=== PATIENT | female | born 1985 | race Two or more races ===

== ENCOUNTER 2018-11-10 13:57 | Inpatient (IN) | payer MEDICAID ==
[~2018-11-10] VITALS: Ht 167.6 cm; Wt 53.3 kg
[2018-11-10 14:00] VITALS: BP 131/77
--- NOTE | 2018-11-10 14:01 | NUR ---
ED Nurse Note:pt. was BIBA with c/o right flank pain
[2018-11-10] MEDS ORDERED: Ketorolac 30mg Inj IV ONE (14:15)
[2018-11-10 14:34] LABS: HEMATOCRIT 34.4 % (37.0-47.0); HEMOGLOBIN 11.9 G/DL (12.0-16.0); MEAN CORPUSCULAR VOLUME 93 FL (80-99); PLATELET COUNT 133 K/UL (150-450); RED BLOOD COUNT 3.71 M/UL (4.20-5.40); RED CELL DISTRIBUTION WIDTH 11.3 % (11.6-14.8)
[2018-11-10 14:35] LABS: APPEARANCE,URINE CLEAR; BILIRUBIN, URINE NEGATIVE (NEGATIVE); COLOR,URINE PALE YELLOW; GLUCOSE, URINE (UA) NEGATIVE (NEGATIVE); KETONES,URINE NEGATIVE (NEGATIVE); LEUKOCYTE ESTERASE ,URINE 3+ (NEGATIVE); NITRITE,URINE NEGATIVE (NEGATIVE); PH,URINE 6 (4.5-8.0); PROTEIN,URINE 1+ (NEGATIVE); UROBILINOGEN,URINE NORMAL MG/DL (0.0-1.0)
[2018-11-10 14:47] LABS: ANION GAP 10 mmol/L (5-15); BLOOD UREA NITROGEN 10 mg/dL (7-18); CALCIUM 9.3 MG/DL (8.5-10.1); CARBON DIOXIDE 27 MMOL/L (21-32); CHLORIDE 101 MMOL/L (98-107); CREATININE 0.7 MG/DL (0.55-1.30); POTASSIUM 3.5 MMOL/L (3.5-5.1); SODIUM 138 MMOL/L (136-145)
[2018-11-10 14:51] LABS: ALANINE AMINOTRANSFERASE 13 U/L (12-78); ALBUMIN 3.6 G/DL (3.4-5.0); ALBUMIN/GLOBULIN RATIO 0.9 (1.0-2.7); ALKALINE PHOSPHATASE 49 U/L (46-116); ASPARTATE AMINO TRANSFERASE 14 U/L (15-37); BILIRUBIN,TOTAL 0.9 MG/DL (0.2-1.0)
--- NOTE | 2018-11-10 14:51 | Emergency Room Report ---
History of Present Illness General Chief Complaint: Pain Source: Patient Present Illness HPI Patient presents with complaints of right flank pain She reports that she was diagnosed with bladder infection 3 weeks ago was on antibiotics More recently now has been having pain to the right flank area denies any other radiation she has felt some chills earlier Denies any vomiting or diarrhea denies any chest pain or shortness of breath pain is a sharp pain denies any change of position or exertion Allergies: Coded Allergies: No Known Allergies (Unverified , 11/10/18) Patient History Past Medical History: see triage record Pertinent Family History: none Last Menstrual Period: 11/08/18 Now: No Reviewed Nursing Documentation: PMH: Agreed; PSxH: Agreed Nursing Documentation-PMH Past Medical History: No Stated History Review of Systems All Other Systems: negative except mentioned in HPI Physical Exam Vital Signs Date Time Temp Pulse Resp B/P (MAP) Pulse Ox O2 Delivery O2 Flow Rate FiO2 11/10/18 13:29 98.6 68 16 131/77 99 Room Air Sp02 EP Interpretation: reviewed, normal General Appearance: well appearing, no apparent distress Head: normocephalic, atraumatic Eyes: bilateral eye PERRL, bilateral eye EOMI ENT: hearing grossly normal, normal pharynx, TMs + canals normal, uvula midline Neck: full range of motion, supple, no meningismus, no bony tend Respiratory: lungs clear, normal breath sounds, no rhonchi, no respiratory distress, no retraction, no accessory muscle use Cardiovascular #1: normal peripheral pulses, regular rate, rhythm, no edema, no gallop, no JVD, no murmur Gastrointestinal: normal bowel sounds, non tender, soft, no mass, no organomegaly, non-distended, no guarding, no hernia, no pulsatile mass, no rebound Genitourinary: CVA tenderness (R) Musculoskeletal: normal inspection Neurologic: oriented x3, responsive, binder and wrapper packer III-XII nml as tested, motor strength/ tone normal, sensory intact Psychiatric: mood/affect normal Skin: normal color, no rash, warm/dry, palpation normal Lymphatic: normal inspection, no adenopathy Medical Decision Making Diagnostic Impression: Primary Impression: Pyelonephritis ER Course With the patient's history and examination, multiple differentials considered, including but not limited to , ectopic , ovarian torsion, gastritis, cholecystitis, pancreatitis, appendicitis Patient's white blood cell count was mildly elevated urine sample that show infectious pathology Given the patient's location of pain and presentation findings are consistent with pyelonephritis patient has had recent antibiotic coverage And given the failed outpatient therapy requires further inpatient care Labs Test 11/10/18 14:20 11/11/18 06:13 11/11/18 17:50 White Blood Count 13.0 K/UL (4.8-10.8) 10.4 K/UL (4.8-10.8) Red Blood Count 3.71 M/UL (4.20-5.40) 3.31 M/UL (4.20-5.40) Hemoglobin 11.9 G/DL (12.0-16.0) 10.6 G/DL (12.0-16.0) Hematocrit 34.4 % (37.0-47.0) 30.8 % (37.0-47.0) Mean Corpuscular Volume 93 FL (80-99) 93 FL (80-99) Mean Corpuscular Hemoglobin 32.1 PG (27.0-31.0) 32.2 PG (27.0-31.0) Mean Corpuscular Hemoglobin Concent 34.7 G/DL (32.0-36.0) 34.6 G/DL (32.0-36.0) Red Cell Distribution Width 11.3 % (11.6-14.8) 11.6 % (11.6-14.8) Platelet Count 133 K/UL (150-450) 113 K/UL (150-450) Mean Platelet Volume 7.2 FL (6.5-10.1) 7.7 FL (6.5-10.1) Neutrophils (%) (Auto) % (45.0-75.0) 79.8 % (45.0-75.0) Lymphocytes (%) (Auto) % (20.0-45.0) 11.1 % (20.0-45.0) Monocytes (%) (Auto) % (1.0-10.0) 8.3 % (1.0-10.0) Eosinophils (%) (Auto) % (0.0-3.0) 0.2 % (0.0-3.0) Basophils (%) (Auto) % (0.0-2.0) 0.6 % (0.0-2.0) Differential Total Cells Counted 100 100 Neutrophils % (Manual) 83 % (45-75) 76 % (45-75) Lymphocytes % (Manual) 10 % (20-45) 13 % (20-45) Monocytes % (Manual) 4 % (1-10) 9 % (1-10) Eosinophils % (Manual) 0 % (0-3) 0 % (0-3) Basophils % (Manual) 0 % (0-2) 0 % (0-2) Band Neutrophils 3 % (0-8) 2 % (0-8) Platelet Estimate Decreased Decreased Platelet Morphology Normal Normal Red Blood Cell Morphology Normal Urine Color Pale yellow Urine Appearance Clear Urine pH 6 (4.5-8.0) Urine Specific [place] 1.010 (1.005-1.035) Urine Protein 1+ (NEGATIVE) Urine Glucose (UA) Negative (NEGATIVE) Urine Ketones Negative (NEGATIVE) Urine Blood 3+ (NEGATIVE) Urine Nitrite Negative (NEGATIVE) Urine Bilirubin Negative (NEGATIVE) Urine Urobilinogen Normal MG/DL (0.0-1.0) Urine Leukocyte Esterase 3+ (NEGATIVE) Urine RBC 2-4 /HPF (0 - 2) Urine WBC 20-30 /HPF (0 - 2) Urine Squamous Epithelial Cells Few /LPF (NONE/OCC) Urine Bacteria Moderate /HPF (NONE) Urine HCG, Qualitative Negative (NEGATIVE) Sodium Level 138 MMOL/L (136-145) 143 MMOL/L (136-145) Potassium Level 3.5 MMOL/L (3.5-5.1) 3.3 MMOL/L (3.5-5.1) Chloride Level 101 MMOL/L (98-107) 108 MMOL/L (98-107) Carbon Dioxide Level 27 MMOL/L (21-32) 28 MMOL/L (21-32) Anion Gap 10 mmol/L (5-15) 7 mmol/L (5-15) Blood Urea Nitrogen 10 mg/dL (7-18) 12 mg/dL (7-18) Creatinine 0.7 MG/DL (0.55-1.30) 0.8 MG/DL (0.55-1.30) Estimat Glomerular Filtration Rate > 60 mL/min (>60) > 60 mL/min (>60) Glucose Level 101 MG/DL (74-106) 102 MG/DL (74-106) Calcium Level 9.3 MG/DL (8.5-10.1) 8.5 MG/DL (8.5-10.1) Total Bilirubin 0.9 MG/DL (0.2-1.0) 0.7 MG/DL (0.2-1.0) Aspartate Amino Transf (AST/SGOT) 14 U/L (15-37) 13 U/L (15-37) Alanine Aminotransferase (ALT/SGPT) 13 U/L (12-78) 14 U/L (12-78) Alkaline Phosphatase 49 U/L (46-116) 47 U/L (46-116) Total Protein 7.5 G/DL (6.4-8.2) 6.2 G/DL (6.4-8.2) Albumin 3.6 G/DL (3.4-5.0) 2.8 G/DL (3.4-5.0) Globulin 3.9 g/dL 3.4 g/dL Albumin/Globulin Ratio 0.9 (1.0-2.7) 0.8 (1.0-2.7) Lipase 67 U/L (73-393) Anisocytosis 1+ Reticulocyte Count 1.8 % (0.0-2.0) Fibrinogen 464 mg/dL (200-400) Lactate Dehydrogenase 116 U/L (81-234) HIV (1&2) Antibody Rapid Negative (NEGATIVE) CT/MRI/US Diagnostic Results CT/MRI/US Diagnostic Results : Impression CT abdomen pelvisFindings: No renal or ureteral calculi are demonstrated. No hydronephrosis nor hydroureter. Lack of IV contrast limits assessment of the renal parenchyma. No gross renal parenchymal mass or cyst demonstrated. Lack of IV contrast limits assessment of the other solid organs. The liver, gallbladder, bile ducts, pancreas, spleen, adrenals are unremarkable. No retroperitoneal or mesenteric mass or adenopathy. No pelvic mass or adenopathy. There is suggestion of mild bladder wall thickening. There is evidence of endoluminal tubal ligation devices bilaterally. Uterus and ovaries appear unremarkable. The appendix is normal. There is no evidence of diverticulosis or diverticulitis. No small bowel distention. No free or loculated intraperitoneal gas or fluid is evident. The distal esophagus, stomach, duodenum are unremarkable. The included lung bases are clear. The bones are unremarkable Impression: Mild bladder wall thickening, could indicate cystitis. Correlate with clinical findings No acute process otherwise. No evidence of urinary stone disease or obstructive uropathy Evidence of prior bilateral endoluminal fallopian tubal ligation Last Vital Signs Date Time Temp Pulse Resp B/P (MAP) Pulse Ox O2 Delivery O2 Flow Rate FiO2 11/10/18 14:00 98.6 68 16 131/77 99 Room Air Status: improved Disposition: ADMITTED INPATIENT Condition: Serious Scripts No Active Prescriptions or Reported Meds Ismael Bryan DO Nov 10, 2018 14:51
[2018-11-10] MEDS ORDERED: cefTRIAXone 1 GM in NS 55 ML IVPB ONE (15:15)
--- NOTE | 2018-11-10 15:59 | Diagnostic Imaging Report ---
Indication: Right flank pain, history of bladder infection Technique: Spiral acquisitions obtained through the abdomen and pelvis. No oral or IV contrast utilized, per urinary stone protocol. Multiplanar reconstructions were generated. Total dose length product 451.8 mGycm. CTDIvol(s) 9.87 mGy. Dose reduction achieved using automated exposure control Comparison: none Findings: No renal or ureteral calculi are demonstrated. No hydronephrosis nor hydroureter. Lack of IV contrast limits assessment of the renal parenchyma. No gross renal parenchymal mass or cyst demonstrated. Lack of IV contrast limits assessment of the other solid organs. The liver, gallbladder, bile ducts, pancreas, spleen, adrenals are unremarkable. No retroperitoneal or mesenteric mass or adenopathy. No pelvic mass or adenopathy. There is suggestion of mild bladder wall thickening. There is evidence of endoluminal tubal ligation devices bilaterally. Uterus and ovaries appear unremarkable. The appendix is normal. There is no evidence of diverticulosis or diverticulitis. No small bowel distention. No free or loculated intraperitoneal gas or fluid is evident. The distal esophagus, stomach, duodenum are unremarkable. The included lung bases are clear. The bones are unremarkable Impression: Mild bladder wall thickening, could indicate cystitis. Correlate with clinical findings No acute process otherwise. No evidence of urinary stone disease or obstructive uropathy Evidence of prior bilateral endoluminal fallopian tubal ligation The CT scanner at [facility] is accredited by the [employer] and the scans are performed using protocols designed to limit radiation exposure to as low as reasonably achievable to attain images of sufficient resolution adequate for diagnostic evaluation.
[2018-11-10 18:07] VITALS: BP 91/50
--- NOTE | 2018-11-10 18:08 | NUR ---
ED Nurse Note: Patient c/o right flank pain, but tolerable at this time. No facial grimacing or guarding noted. at bedside.
--- NOTE | 2018-11-10 18:59 | NUR ---
ED Nurse Note:called 3 east to give report- CN told to call back at 19:30
--- NOTE | 2018-11-10 19:40 | NUR ---
ED Nurse Note: RECIEVED REPORT TO RESUME CARE, PT BEING ADMITTED TO HOSPITAL FOR PYELONEPHRITIS, REPORT CALLED TO FLOOR NURSE, PT IS IN BED AWAKE, ALERT AND ORIENTED X 4, SALINE LOCK INTACT, PT HAS RIGHT FLANK PAINA T 02/10, MD INFORMED, NO NEW ORDERS RECIEVED, PT BELONGINGS LIST COMPLETED AND SHE HAS ALL BELONGINGS, V/S STABLE, PT BEING TAKEN TO FLOOR UNIT VIA GURNEY WITH ER-TECH, NAD NOTED.
[2018-11-10 20:00] VITALS: BP 102/60
--- NOTE | 2018-11-10 21:00 | NUR ---
NURSE NOTES: Pt is admitted from ER in stable condition at 2015. Vitals stable.Pt is awake ,alert and ambulatory. No acute distress noted. Report received from Brenda PARK RN. Pt is surrounded by family members. Pt reports no pain at this time. No nausea or vomiting. Pt is calm. Pt is on room air. Dr. Gore Called for admitting orders. Orders received from Dr. Watts and acknowledged. Pt is on clear liq diet. Pt is oriente dto the unit. Pt's belonging sheet verified and pt signed . Bed low in position,side rails up and call light within reach.
[2018-11-10] MEDS: Acetaminophen 500mg (ES) tab ORAL PRN (22:36)
[2018-11-11] VITALS (7 sets, daily range): BP systolic 93–107; BP diastolic 48–61
--- NOTE | 2018-11-11 02:50 | NUR ---
NURSE NOTES: Pt is in bed, asleep. NO acute distress noted. RR 16.
[2018-11-11 07:01] LABS: BASOPHILS % (AUTO) 0.6 % (0.0-2.0); EOSINOPHILS % (AUTO) 0.2 % (0.0-3.0); HEMATOCRIT 30.8 % (37.0-47.0); HEMOGLOBIN 10.6 G/DL (12.0-16.0); LYMPHOCYTES % (AUTO) 11.1 % (20.0-45.0); MEAN CORPUSCULAR VOLUME 93 FL (80-99); MONOCYTES % (AUTO) 8.3 % (1.0-10.0); NEUTROPHILS % (AUTO) 79.8 % (45.0-75.0); PLATELET COUNT 113 K/UL (150-450); RED BLOOD COUNT 3.31 M/UL (4.20-5.40); RED CELL DISTRIBUTION WIDTH 11.6 % (11.6-14.8); WHITE BLOOD COUNT 10.4 K/UL (4.8-10.8)
[2018-11-11 07:05] LABS: ALANINE AMINOTRANSFERASE 14 U/L (12-78); ALBUMIN 2.8 G/DL (3.4-5.0); ALBUMIN/GLOBULIN RATIO 0.8 (1.0-2.7); ALKALINE PHOSPHATASE 47 U/L (46-116); ANION GAP 7 mmol/L (5-15); ASPARTATE AMINO TRANSFERASE 13 U/L (15-37); BILIRUBIN,TOTAL 0.7 MG/DL (0.2-1.0); BLOOD UREA NITROGEN 12 mg/dL (7-18); CALCIUM 8.5 MG/DL (8.5-10.1); CARBON DIOXIDE 28 MMOL/L (21-32); CHLORIDE 108 MMOL/L (98-107); CREATININE 0.8 MG/DL (0.55-1.30); POTASSIUM 3.3 MMOL/L (3.5-5.1); SODIUM 143 MMOL/L (136-145)
--- NOTE | 2018-11-11 07:25 | NUR ---
HAND-OFF: Report given to JYALIN Yan. Pt is in bed, awake and alert. No acute distress noted. Pt is ambulatory.
--- NOTE | 2018-11-11 07:30 | NUR ---
NURSE NOTES: Received pt from RN JOSSUE. Pt is alert and orient x4. pt is in RA. No SOB or acute respiratory distress noted. pt has intact iv access LAC 20G SL. all needs attended, bed is locked and is in the lowest position. call light within easy reach. will continue to monitor.
[2018-11-11] MEDS: Acetaminophen 500mg (ES) tab ORAL PRN ×2 (08:51→20:38)
--- NOTE | 2018-11-11 09:00 | NUR ---
NURSE NOTES: K 3.3, Dr MCKEON and Dr SANDHU are notified.
[2018-11-11] MEDS ORDERED: Sodium Chloride for KCL Premix X 3hrs IV SCH (10:00)
--- NOTE | 2018-11-11 11:03 | NUR ---
*-* NO INSURANCE INFORMATION ON THE BAR TO SEND CLINICALS *-*
--- NOTE | 2018-11-11 14:26 | NUR ---
CASE MANAGEMENT:REVIEW 33 YR OLD FEMALE BIBA FROM HER JOB CC: RT FLANK PAIN PMH: DIAGNOSED WITH BLADDER INFECTION 3 WEEKS AGO AND WAS ON ANTIBIOTICS SI: PYELONEPHRITIS 100.1 68 16 131/77 99% ON RA WBC+13.0 H/H-11.9/34.4 PLT-133 IS: 1L NS BOLUS IV TORADOL IV ROCEPHIN CT ABD/PELVIS :TO MED/SURG INTERQUAL CRITERIA MET
--- NOTE | 2018-11-11 14:49 | Consultation ---
Consult Note Consult Note Asked to eval at the request of dr hansen Patient presents with complaints of right flank pain She reports that she was diagnosed with bladder infection 3 weeks ago was on antibiotics More recently now has been having pain to the right flank area denies any other radiation she has felt some chills earlier Denies any vomiting or diarrhea denies any chest pain or shortness of breath pain is a sharp pain denies any change of position or exertion No Known Allergies (Unverified , 11/10/18) interviewed data reviewed Assessment/Plan Pyelonephritis Anemia HypoAlbuminemia Hydrate Antibiotics Anemia work up CT: Impression: Mild bladder wall thickening, could indicate cystitis. No acute process otherwise. No evidence of urinary stone disease or obstructive uropathy Evidence of prior bilateral endoluminal fallopian tubal ligation Jose Potts MD Nov 11, 2018 14:48
[2018-11-11] MEDS: cefTRIAXone 1 GM in D5W 55 ML IVPB SCH (15:34)
[2018-11-11] MEDS: D5 1/2NS w/KCl 40meq 1000ml 1,000 ML IV SCH (15:40)
--- NOTE | 2018-11-11 17:04 | Consultation ---
History of Present Illness General Chief Complaint: Pain Present Illness Allergies: Coded Allergies: No Known Allergies (Unverified , 11/10/18) Medication History No Active Prescriptions or Reported Meds Patient History Healthcare decision maker N Resuscitation status Full Code Advanced Directive on File Physical Exam Last 24 Hour Vital Signs Date Time Temp Pulse Resp B/P (MAP) Pulse Ox O2 Delivery O2 Flow Rate FiO2 11/11/18 12:00 98.4 60 19 101/61 (74) 99 11/11/18 09:11 98.6 11/11/18 09:00 Room Air 11/11/18 08:00 98.6 86 20 93/54 (67) 99 11/11/18 04:00 99.8 65 18 93/51 (65) 99 11/11/18 02:29 Room Air 11/11/18 00:00 100.1 91 18 96/48 (64) 98 11/10/18 20:00 97.8 83 18 102/60 (74) 99 11/10/18 19:56 98.2 95 16 91/50 99 Room Air 11/10/18 18:07 98.2 95 16 91/50 99 Room Air Intake and Output 11/10/18 11/11/18 19:00 07:00 # Voids 1 2 Laboratory Tests Test 11/11/18 06:13 White Blood Count 10.4 K/UL (4.8-10.8) Red Blood Count 3.31 M/UL (4.20-5.40) L Hemoglobin 10.6 G/DL (12.0-16.0) L Hematocrit 30.8 % (37.0-47.0) L Mean Corpuscular Volume 93 FL (80-99) Mean Corpuscular Hemoglobin 32.2 PG (27.0-31.0) H Mean Corpuscular Hemoglobin Concent 34.6 G/DL (32.0-36.0) Red Cell Distribution Width 11.6 % (11.6-14.8) Platelet Count 113 K/UL (150-450) L Mean Platelet Volume 7.7 FL (6.5-10.1) Neutrophils (%) (Auto) 79.8 % (45.0-75.0) H Lymphocytes (%) (Auto) 11.1 % (20.0-45.0) L Monocytes (%) (Auto) 8.3 % (1.0-10.0) Eosinophils (%) (Auto) 0.2 % (0.0-3.0) Basophils (%) (Auto) 0.6 % (0.0-2.0) Sodium Level 143 MMOL/L (136-145) Potassium Level 3.3 MMOL/L (3.5-5.1) L Chloride Level 108 MMOL/L (98-107) H Carbon Dioxide Level 28 MMOL/L (21-32) Anion Gap 7 mmol/L (5-15) Blood Urea Nitrogen 12 mg/dL (7-18) Creatinine 0.8 MG/DL (0.55-1.30) Estimat Glomerular Filtration Rate > 60 mL/min (>60) Glucose Level 102 MG/DL (74-106) Calcium Level 8.5 MG/DL (8.5-10.1) Total Bilirubin 0.7 MG/DL (0.2-1.0) Aspartate Amino Transf (AST/SGOT) 13 U/L (15-37) L Alanine Aminotransferase (ALT/SGPT) 14 U/L (12-78) Alkaline Phosphatase 47 U/L (46-116) Total Protein 6.2 G/DL (6.4-8.2) L Albumin 2.8 G/DL (3.4-5.0) L Globulin 3.4 g/dL Albumin/Globulin Ratio 0.8 (1.0-2.7) L Height (Feet): 5 Height (Inches): 6.00 Weight (Pounds): 117 Medications Current Medications Medications (Trade) Dose Ordered Sig/Liz Route PRN Reason Start Time Stop Time Status Last Admin Dose Admin Acetaminophen (Tylenol) 500 mg Q4H PRN ORAL Mild Pain/Temp > 100.5 11/10/18 21:00 12/10/18 20:59 11/11/18 08:51 Ceftriaxone Sodium 1 gm/ Dextrose 55 ml @ 110 mls/hr Q24H IVPB 11/11/18 15:00 11/18/18 14:59 11/11/18 15:34 Dextrose/ Electrolytes 1,000 ml @ 50 mls/hr Q20H IV 11/11/18 16:00 12/11/18 15:59 11/11/18 15:40 Pantoprazole (Protonix) 40 mg EVERY 12 HOURS ORAL 11/11/18 21:00 12/11/18 20:59 Assessment/Plan Assessment/Plan Hematology Consultation REQ MD: Ismael Gore RFC: Anemia eval and thrombocytopenia DOS: 11/11/18 ID 33 y old female, pleasant with friend in her room today patient presents with complaints of right flank pain She reports that she was diagnosed with bladder infection 3 weeks ago was on antibiotics More recently now has been having pain to the right flank area denies any other radiation she has felt some chills earlier Denies any vomiting or diarrhea denies any chest pain or shortness of breath pain is a sharp pain denies any change of position or exertion Noted to have low plts and anemia and heme was consulted Coded Allergies: No Known Allergies (Unverified , 11/10/18) Past Medical History: see triage record Pertinent Family History: none Last Menstrual Period: 11/08/18 Now: No Reviewed Nursing Documentation: PMH: Agreed; PSxH: Agreed Past Medical History: No Stated History Review of Systems: negative except mentioned in HPI PE Vital Signs Date Time Temp Pulse Resp B/P (MAP) Pulse Ox O2 Delivery O2 Flow Rate FiO2 11/11/18 13:29 98.6 68 16 131/77 99 Room Air General Appearance: NAD HEENT: normocephalic, atraumatic Neck: non-tender, normal alignment Respiratory/Chest: nromal breath sounds bilaterally Cardiovascular/Chest: normal peripheral pulses, normal rate Abdomen: normal bowel sounds, soft, nontender Extremities: normal range of motion labs: noted above Meds: noted above Assessment and recs: # Anemia of chronic disease (or of iron deficiency) due to underlying chronic medical issues, multifactorial --> Anemia workup has been ordered, rule out gi bleed --> No evidence of hemolysis is noted, peripheral smear has been reviewed. --> Hgb goal >7. Transfuse prn. --> Epogen or iron at this time is not particularly indicated --> Medications have been reviewed --> evaluate with Gi team prn --> transfuse if hgb is < 7 (will trend CBC daily) --> low threshold for gi evaluation in case has occult + # Thrombocytopenia - potential causes multifactorial, evaluate liver and viral etiologies to begin, also could be related to underlying medications patient has received. --> Hep panel and HIV ordered --> US abd to evaluate for cirrhosis and hsm ordered --> Peripheral smear ordered to evaluate for blasts /schistocytes --> abx and other meds have been reviewed --> ok for ppx if plt >50k w/ either heparin or lovenox --> Transfuse if Plt < 20k and fever, or if Plt < 10k without fever # Pyelonephritis --> on abx, have been started # Hypokelamia --> repletion per renal recs, appreciated # HypoAlbuminemia --> eval as needed per renal The timing of this note does not necessarily reflect the time of the patient was seen. Greatly appreciate consultation! Don Ocampo MD Nov 11, 2018 17:04
--- NOTE | 2018-11-11 19:56 | NUR ---
HAND-OFF: Report given to JAYLIN MORALES. Reported pt is NPO from mid night due to abdominal .
--- NOTE | 2018-11-11 21:15 | Consultation ---
DATE OF CONSULTATION: 11/11/2018 INFECTIOUS DISEASE CONSULTATION CONSULTING PHYSICIAN: Rocael Umanzor M.D. PRIMARY ATTENDING PHYSICIAN: Ismael Gore M.D. REASON FOR CONSULT: Pyelonephritis. HISTORY OF PRESENT ILLNESS: This is a 33-year-old female admitted last night from home complaining of right flank pain. The patient states that around 2 weeks ago, had urinary tract infection, gets antibiotic and become better. She gets an antibiotic 2 times a day, but does not remember the name of antibiotic. At the time of admission, had leukocytosis at 13,000. Developed a low-grade fever around 100.1 in the hospital. Today, feeling better. PAST MEDICAL HISTORY: None significant. PAST SURGICAL HISTORY: . MEDICATIONS: Getting ceftriaxone, potassium chloride, sodium chloride, and Tylenol. ALLERGIES: No known drug allergies. SOCIAL HISTORY: . Have 2 kids. Smokes electronic cigarettes. Occasional drinking. REVIEW OF SYSTEMS: Feels better today. No fever. No chills. No coughing. Flank pain has become better. No nausea. No vomiting. No problem passing urine. PHYSICAL EXAMINATION: VITAL SIGNS: Temperature a is 98.6, pulse 86, blood pressure 93/54, and T-max 100.1. GENERAL APPEARANCE: Seems to be thin, no acute distress, sitting up. HEAD AND NECK: Mcdade conjunctiva. HEART: Normal rate. LUNGS: Clear. ABDOMEN: Soft. There is CVA tenderness in the right side. EXTREMITY: Has no edema. NEUROLOGIC: Awake, alert, and oriented x3. LABORATORY DATA: WBC 10.54 coming from 13 at the time of admission, hemoglobin 10.6, hematocrit 30.8, and platelets is 113,000. Sodium 143, potassium 3.3, chloride 108, bicarbonate 28, BUN 12, creatinine 0.8, and glucose 102. Urine culture growing gram-negative bacillus. UA showed wbc's 20 to 30, leukocyte esterase 2+, blood 3+, and bacteria moderate. DIAGNOSTIC STUDIES: A CT scan of abdomen and pelvis showed mild bladder wall thickening could indicate cystitis. No acute process. Evidence of bilateral endoluminal fallopian tube ligation. IMPRESSION: UTI, likely cystitis and pyelonephritis. Culture growing gram-negative rods. The patient has anemia and thrombocytopenia. Has mild hypokalemia. RECOMMENDATIONS: Continue ceftriaxone. We will follow up the cultures. At the end of my exam, I thank Dr. Gore for involving me in the care of this patient. Rocael Umanzor M.D. DR: RICHARD JOB#: [id number] CC:
[2018-11-12] VITALS: BP 97/58
--- NOTE | 2018-11-12 02:00 | History and Physical Report ---
DATE OF ADMISSION: 11/10/2018 HISTORY OF PRESENT ILLNESS: The patient admitted for pyelonephritis. The patient has bladder wall thickening as well as UTI. The patient was complaining of flank pain for two days and chills for two days and dysuria. The patient denies nausea, vomiting, or diarrhea. Does have chills. Denies shortness of breath. Denies cough. PAST MEDICAL HISTORY: None. PAST SURGICAL HISTORY: . SOCIAL HISTORY: History of smoking. No history of alcohol or illicit drugs. MEDICATIONS: No routine medications. FAMILY HISTORY: Noncontributory. REVIEW OF SYSTEMS: HEENT: Denies headaches. RESPIRATORY: Denies shortness of breath. Denies cough. CARDIOVASCULAR: Denies chest pain. Denies orthopnea. GASTROINTESTINAL: Denies nausea, vomiting, or diarrhea. She does have flank pain for two days. GENITOURINARY: Does have some dysuria. EXTREMITIES: Denies any pain. CENTRAL NERVOUS SYSTEM: No change in vision or speech pattern. PHYSICAL EXAMINATION: VITAL SIGNS: Temperature 99.8, pulse is 65, and blood pressure 90/51. HEENT: PERRLA. NECK: Supple. No lymphadenopathy. CHEST: Clear to auscultation. CARDIOVASCULAR: Regular rate and rhythm. No murmurs or extra sounds. GASTROINTESTINAL: Soft, nontender, and nondistended. No organomegaly. EXTREMITIES: No edema. Moves all four extremities. NEUROLOGIC: Sensory is intact to light touch. Reflexes equal on both sides. LABORATORY DATA: Laboratory chen, UA shows UTI. WBC of 13, hemoglobin of 11.9, and platelets of 133. Sodium 138, potassium 3.5, chloride 101, BUN of 10, creatinine 0.7, and glucose of 101. ASSESSMENT AND PLAN: 1. Pyelonephritis. 2. UTI. I have asked Dr. Mark Drummond, Dr. Rocael Umanzor, and Dr. Potts to see the patient for dehydration and treatment of the UTI and pyelonephritis. Ismael Gore M.D. DR: JAIRO JOB#: [id number] CC:
[2018-11-12 04:00] VITALS: BP 100/59
[2018-11-12 06:31] LABS: BASOPHILS % (AUTO) 0.4 % (0.0-2.0); EOSINOPHILS % (AUTO) 0.8 % (0.0-3.0); HEMATOCRIT 28.7 % (37.0-47.0); HEMOGLOBIN 9.9 G/DL (12.0-16.0); LYMPHOCYTES % (AUTO) 13.1 % (20.0-45.0); MEAN CORPUSCULAR VOLUME 94 FL (80-99); MONOCYTES % (AUTO) 11.3 % (1.0-10.0); NEUTROPHILS % (AUTO) 74.3 % (45.0-75.0); PLATELET COUNT 101 K/UL (150-450); RED BLOOD COUNT 3.05 M/UL (4.20-5.40); RED CELL DISTRIBUTION WIDTH 11.1 % (11.6-14.8); WHITE BLOOD COUNT 7.8 K/UL (4.8-10.8)
[2018-11-12 07:22] LABS: ALANINE AMINOTRANSFERASE 19 U/L (12-78); ALBUMIN 2.7 G/DL (3.4-5.0); ALBUMIN/GLOBULIN RATIO 0.8 (1.0-2.7); ALKALINE PHOSPHATASE 61 U/L (46-116); ANION GAP 8 mmol/L (5-15); ASPARTATE AMINO TRANSFERASE 17 U/L (15-37); BILIRUBIN,TOTAL 0.6 MG/DL (0.2-1.0); BLOOD UREA NITROGEN 7 mg/dL (7-18); CALCIUM 8.1 MG/DL (8.5-10.1); CARBON DIOXIDE 26 MMOL/L (21-32); CHLORIDE 108 MMOL/L (98-107); CHOLESTEROL 91 MG/DL (< 200); CREATININE 0.7 MG/DL (0.55-1.30); FERRITIN 117 NG/ML (8-388); GAMMA GLUTAMYL TRANSPEPTIDASE 17 U/L (5-85); HDL CHOLESTEROL 28 MG/DL (40-60); SODIUM 142 MMOL/L (136-145); TRIGLYCERIDES 101 MG/DL (30-150)
--- NOTE | 2018-11-12 07:23 | NUR ---
HAND-OFF: Report given to Angel Puentes
[2018-11-12 07:26] LABS: % IRON SATURATION 15 % (15-50); IRON 28 ug/dL (50-175); TOTAL IRON BINDING CAPACITY 184 ug/dL (250-450)
[2018-11-12 08:00] VITALS: BP 99/58
--- NOTE | 2018-11-12 09:00 | NUR ---
NURSE NOTES: during shift change patient stable alert oriented with out any distress call light with in reach bed at low position, NPO for scheduled US will continue to follow up.
--- NOTE | 2018-11-12 09:17 | Diagnostic Imaging Report ---
Indication: Right flank pain Technique: Eddy-scale and duplex images of the upper abdomen were obtained. Doppler interrogation of the hepatic and pancreatic vessels Comparison: Reference made to abdomen pelvis CT 11/10/2018 Findings: Gallbladder is unremarkable, without stones, wall thickening, nor pericholecystic fluid. Sonographic Jose's sign is negative. Common bile duct measures to mm in diameter. No intrahepatic biliary ductal dilatation. Liver demonstrates normal echogenicity, no focal abnormality. Portal vein and hepatic veins are patent. Pancreas is unremarkable. Spleen is unremarkable. Left kidney measures cm in length. Right kidney measures cm length. Both kidneys demonstrate normal echogenicity. There is mild right hydronephrosis versus a parapelvic cyst, in retrospect evident on recent CT. There is very mild left renal collecting system fullness. However, bilateral ureteral jets are demonstrated in the bladder. Non-aneurysmal abdominal aorta . Debris is noted within the urinary bladder Impression: Mild right hydronephrosis versus parapelvic cyst, favor the former, without definite obstructing calculus or evidence of ureteral dilatation, evident in retrospect on recent CT scan. Could represent mild congenital ureteropelvic junction obstruction. Nuclear medicine renal scan may be useful to clarify degree of obstruction, if any Nonspecific mild left renal collecting system fullness Debris noted within the urinary bladder Negative for gallstones or dilated bile ducts
[2018-11-12 12:04] VITALS: BP 97/56
--- NOTE | 2018-11-12 14:17 | NUR ---
CASE MANAGEMENT:REVIEW 11/12/18 SI: PYELONEPHRITIS 98.4 56 18 97/56 100% ON RA H/H-9.9/28.7 IS: IVF@50/HR IV ROCEPHIN Q24 PROTONIX PO Q12 : MED/SURG STATUS 3 EAST PLAN: FULL DIET
--- NOTE | 2018-11-12 15:42 | NUR ---
*-* INSURANCE *-* ALL CLINICAS AND REVIEW HAVE BEEN FAXED TO; F/S FAXED TO [facility]....PROF S/W RIDDHI @ [phone] X [phone] REQUESTING REVIEW/CLINICAL NCM: SHUKRI GIPSON FX: [phone].....REVIEW/ CLINICAL & F/S FAXED TO :ANTONINO S/W JOSIE @ [phone] [facility]SA WILL TRACK THIS ADMISSION. NCM: JING Navarro P- [phone] F- [phone]......REVIEW/CLINICAL
[2018-11-12] MEDS: cefTRIAXone 1 GM in D5W 55 ML IVPB SCH (15:50)
[2018-11-12 16:00] VITALS: BP 101/62
--- NOTE | 2018-11-12 16:36 | Infectious Diseases Prog Note ---
Assessment/Plan Assessment/Plan A: UTI, likely cystitis and pyelonephritis. Culture growing E. coi gram-negative rods. anemia thrombocytopenia P: Continue Rocephin in hospital At time of discharge PO Cipro X 5 days Subjective Constitutional: Reports: no symptoms Respiratory: Reports: no symptoms Cardiovascular: Reports: no symptoms Gastrointestinal/Abdominal: Reports: no symptoms Genitourinary: Reports: other - mild right flank pain Allergies: Coded Allergies: No Known Allergies (Unverified , 11/10/18) Objective Vital Signs Last 24 Hour Vital Signs Date Time Temp Pulse Resp B/P (MAP) Pulse Ox O2 Delivery O2 Flow Rate FiO2 11/12/18 12:04 98.4 56 18 97/56 (70) 100 11/12/18 09:00 Room Air 11/12/18 08:00 98.2 61 18 99/58 (72) 97 11/12/18 04:00 97.2 75 18 100/59 (73) 98 11/12/18 00:00 98.8 55 17 97/58 (71) 98 11/11/18 21:08 97.7 11/11/18 21:00 Room Air 11/11/18 20:01 100.0 71 16 101/60 (74) 99 Height (Feet): 5 Height (Inches): 6.00 Weight (Pounds): 117 General Appearance: no acute distress HEENT: mucous membranes moist Respiratory/Chest: lungs clear Cardiovascular: normal rate Abdomen: other - mild right costovertebral tenderness Extremities: no edema Neurologic/Psychiatric: alert, oriented x 3, responsive Microbiology Date/Time Source Procedure Growth Status 11/10/18 14:20 Urine,Clean Catch Urine Culture - Final Escherichia Coli Complete Laboratory Tests Test 11/11/18 17:50 11/12/18 06:10 Reticulocyte Count 1.8 % (0.0-2.0) Fibrinogen 464 mg/dL (200-400) H Lactate Dehydrogenase 116 U/L (81-234) Carcinoembryonic Antigen 0.8 ng/mL (0.0-4.7) Hepatitis A IgM Antibody Negative (Negative) Hepatitis B Surface Antigen Negative (Negative) Hepatitis B Core IgM Antibody Negative (Negative) Hepatitis C Antibody <0.1 s/co ratio HIV (1&2) Antibody Rapid Negative (NEGATIVE) White Blood Count 7.8 K/UL (4.8-10.8) Red Blood Count 3.05 M/UL (4.20-5.40) L Hemoglobin 9.9 G/DL (12.0-16.0) L Hematocrit 28.7 % (37.0-47.0) L Mean Corpuscular Volume 94 FL (80-99) Mean Corpuscular Hemoglobin 32.4 PG (27.0-31.0) H Mean Corpuscular Hemoglobin Concent 34.5 G/DL (32.0-36.0) Red Cell Distribution Width 11.1 % (11.6-14.8) L Platelet Count 101 K/UL (150-450) L Mean Platelet Volume 7.4 FL (6.5-10.1) Neutrophils (%) (Auto) 74.3 % (45.0-75.0) Lymphocytes (%) (Auto) 13.1 % (20.0-45.0) L Monocytes (%) (Auto) 11.3 % (1.0-10.0) H Eosinophils (%) (Auto) 0.8 % (0.0-3.0) Basophils (%) (Auto) 0.4 % (0.0-2.0) Sodium Level 142 MMOL/L (136-145) Potassium Level 4.0 MMOL/L (3.5-5.1) Chloride Level 108 MMOL/L (98-107) H Carbon Dioxide Level 26 MMOL/L (21-32) Anion Gap 8 mmol/L (5-15) Blood Urea Nitrogen 7 mg/dL (7-18) Creatinine 0.7 MG/DL (0.55-1.30) Estimat Glomerular Filtration Rate > 60 mL/min (>60) Glucose Level 93 MG/DL (74-106) Hemoglobin A1c 5.0 % (4.3-6.0) Uric Acid 3.5 MG/DL (2.6-7.2) Calcium Level 8.1 MG/DL (8.5-10.1) L Phosphorus Level 3.0 MG/DL (2.5-4.9) Magnesium Level 1.9 MG/DL (1.8-2.4) Iron Level 28 ug/dL (50-175) L Total Iron Binding Capacity 184 ug/dL (250-450) L Percent Iron Saturation 15 % (15-50) Unsaturated Iron Binding 156 ug/dL (112-346) Ferritin 117 NG/ML (8-388) Total Bilirubin 0.6 MG/DL (0.2-1.0) Gamma Glutamyl Transpeptidase 17 U/L (5-85) Aspartate Amino Transf (AST/SGOT) 17 U/L (15-37) Alanine Aminotransferase (ALT/SGPT) 19 U/L (12-78) Alkaline Phosphatase 61 U/L (46-116) C-Reactive Protein, Quantitative 14.2 mg/dL (0.00-0.90) H Total Protein 6.0 G/DL (6.4-8.2) L Albumin 2.7 G/DL (3.4-5.0) L Globulin 3.3 g/dL Albumin/Globulin Ratio 0.8 (1.0-2.7) L Triglycerides Level 101 MG/DL (30-150) Cholesterol Level 91 MG/DL (< 200) LDL Cholesterol 45 mg/dL (<100) HDL Cholesterol 28 MG/DL (40-60) L Cholesterol/HDL Ratio 3.3 (3.3-4.4) Vitamin B12 Level 409 PG/ML (193-986) Folate 18.0 NG/ML (8.6-58.9) Thyroid Stimulating Hormone (TSH) 1.540 uiU/mL (0.358-3.740) Current Medications Medications (Trade) Dose Ordered Sig/Liz Route PRN Reason Start Time Stop Time Status Last Admin Dose Admin Acetaminophen (Tylenol) 500 mg Q4H PRN ORAL Mild Pain/Temp > 100.5 11/10/18 21:00 12/10/18 20:59 11/11/18 20:38 Ceftriaxone Sodium 1 gm/ Dextrose 55 ml @ 110 mls/hr Q24H IVPB 11/11/18 15:00 11/18/18 14:59 11/11/18 15:34 Dextrose/ Electrolytes 1,000 ml @ 50 mls/hr Q20H IV 11/11/18 16:00 12/11/18 15:59 11/11/18 15:40 Pantoprazole (Protonix) 40 mg EVERY 12 HOURS ORAL 11/11/18 21:00 12/11/18 20:59 11/12/18 10:18 Rocael Umanzor MD Nov 12, 2018 16:36
[2018-11-12] MEDS: D5 1/2NS w/KCl 40meq 1000ml 1,000 ML IV SCH (16:49)
--- NOTE | 2018-11-12 16:53 | Nephrology Progress Note ---
Assessment/Plan Problem List: (1) Pyelonephritis (2) Anemia (3) Hypoalbuminemia Assessment Pyelonephritis Anemia HypoAlbuminemia Plan Hydrate Antibiotics Anemia work up- IV Venofer once CT: Impression: Mild bladder wall thickening, could indicate cystitis. No acute process otherwise. No evidence of urinary stone disease or obstructive uropathy Evidence of prior bilateral endoluminal fallopian tubal ligation Subjective ROS Limited/Unobtainable: No Constitutional: Reports: malaise, weakness Objective Objective Last 24 Hour Vital Signs Date Time Temp Pulse Resp B/P (MAP) Pulse Ox O2 Delivery O2 Flow Rate FiO2 11/12/18 12:04 98.4 56 18 97/56 (70) 100 11/12/18 09:00 Room Air 11/12/18 08:00 98.2 61 18 99/58 (72) 97 11/12/18 04:00 97.2 75 18 100/59 (73) 98 11/12/18 00:00 98.8 55 17 97/58 (71) 98 11/11/18 21:08 97.7 11/11/18 21:00 Room Air 11/11/18 20:01 100.0 71 16 101/60 (74) 99 Intake and Output 11/11/18 11/12/18 19:00 07:00 Intake Total 2485 ml 1040 ml Balance 2485 ml 1040 ml Intake Oral 1680 ml 640 ml IV Total 805 ml 400 ml # Voids 3 6 Laboratory Tests 11/11/18 17:50: Reticulocyte Count 1.8, Fibrinogen 464H, Lactate Dehydrogenase 116, Carcinoembryonic Antigen 0.8, Hepatitis A IgM Antibody Negative, Hepatitis B Surface Antigen Negative, Hepatitis B Core IgM Antibody Negative, Hepatitis C Antibody <0.1, HIV (1&2) Antibody Rapid Negative 11/12/18 06:10: White Blood Count 7.8, Red Blood Count 3.05L, Hemoglobin 9.9L, Hematocrit 28.7L , Mean Corpuscular Volume 94, Mean Corpuscular Hemoglobin 32.4H, Mean Corpuscular Hemoglobin Concent 34.5, Red Cell Distribution Width 11.1L, Platelet Count 101L, Mean Platelet Volume 7.4, Neutrophils (%) (Auto) 74.3, Lymphocytes (%) (Auto) 13.1L, Monocytes (%) (Auto) 11.3H, Eosinophils (%) (Auto ) 0.8, Basophils (%) (Auto) 0.4, Sodium Level 142, Potassium Level 4.0, Chloride Level 108H, Carbon Dioxide Level 26, Anion Gap 8, Blood Urea Nitrogen 7 , Creatinine 0.7, Estimat Glomerular Filtration Rate > 60, Glucose Level 93, Hemoglobin A1c 5.0, Uric Acid 3.5, Calcium Level 8.1L, Phosphorus Level 3.0, Magnesium Level 1.9, Iron Level 28L, Total Iron Binding Capacity 184L, Percent Iron Saturation 15, Unsaturated Iron Binding 156, Ferritin 117, Total Bilirubin 0.6, Gamma Glutamyl Transpeptidase 17, Aspartate Amino Transf (AST/SGOT) 17, Alanine Aminotransferase (ALT/SGPT) 19, Alkaline Phosphatase 61, C-Reactive Protein, Quantitative 14.2H, Total Protein 6.0L, Albumin 2.7L, Globulin 3.3, Albumin/Globulin Ratio 0.8L, Triglycerides Level 101, Cholesterol Level 91, LDL Cholesterol 45, HDL Cholesterol 28L, Cholesterol/HDL Ratio 3.3, Vitamin B12 Level 409, Folate 18.0, Thyroid Stimulating Hormone (TSH) 1.540 Height (Feet): 5 Height (Inches): 6.00 Weight (Pounds): 117 General Appearance: no apparent distress EENT: other - pale Cardiovascular: normal rate Respiratory/Chest: lungs clear Abdomen: soft Jose Potts MD Nov 12, 2018 16:53
--- NOTE | 2018-11-12 17:35 | General Progress Note ---
Assessment/Plan Assessment/Plan Assessment and recs: # Anemia of chronic disease due to underlying chronic medical issues, multifactorial --> Anemia workup has been ordered/reviewed, ferritin is wnl --> No evidence of hemolysis is noted, peripheral smear has been reviewed. --> Hgb goal >7. Transfuse prn. --> Epogen or iron at this time is not particularly indicated --> Medications have been reviewed --> evaluate with Gi team prn --> transfuse if hgb is < 7 (will trend CBC daily) --> low threshold for gi evaluation in case has occult + # Thrombocytopenia - potential causes multifactorial, evaluate liver and viral etiologies to begin, also could be related to underlying medications patient has received. --> Hep panel and HIV is negative --> US abd to evaluate for cirrhosis and hsm ordered and does not show hsm/ cirrhosis --> Peripheral smear ordered to evaluate for blasts /schistocytes is neg --> abx and other meds have been reviewed --> ok for ppx if plt >50k w/ either heparin or lovenox --> Transfuse if Plt < 20k and fever, or if Plt < 10k without fever # Pyelonephritis --> on abx, have been started # Hypokelamia --> repletion per renal recs, appreciated # HypoAlbuminemia --> eval as needed per renal The timing of this note does not necessarily reflect the time of the patient was seen. Greatly appreciate consultation! Subjective Constitutional: Denies: no symptoms, chills, diaphoresis, fever, malaise, weakness, other HEENT: Denies: no symptoms, eye pain, blurred vision, tearing, double vision, ear pain, ear discharge, nose pain, nose congestion, throat pain, throat swelling, mouth pain, mouth swelling, other Cardiovascular: Denies: no symptoms, chest pain, edema, irregular heart rate, lightheadedness, palpitations, syncope, other Respiratory: Denies: no symptoms, cough, orthopnea, shortness of breath, SOB with excertion, SOB at rest, sputum, stridor, wheezing, other Gastrointestinal/Abdominal: Denies: no symptoms, abdomen distended, abdominal pain, black stools, tarry stools, blood in stool, constipated, diarrhea, difficulty swallowing, nausea, poor appetite, poor fluid intake, rectal bleeding , vomiting, other Genitourinary: Denies: no symptoms, burning, discharge, frequency, flank pain, hematuria, incontinence, pain, urgency, other Neurologic/Psychiatric: Denies: no symptoms, anxiety, depressed, emotional problems, headache, numbness, paresthesia, pre-existing deficit, seizure, tingling, tremors, weakness, other Endocrine: Denies: no symptoms, excessive sweating, flushing, intolerance to cold, intolerance to heat, increased hunger, increased thirst, increased urine, unexplained weight gain, unexplained weight loss, other Allergies: Coded Allergies: No Known Allergies (Unverified , 11/10/18) Subjective 11/12: no events to report, no f/c, hgb 9.9 Objective Last 24 Hour Vital Signs Date Time Temp Pulse Resp B/P (MAP) Pulse Ox O2 Delivery O2 Flow Rate FiO2 11/12/18 12:04 98.4 56 18 97/56 (70) 100 11/12/18 09:00 Room Air 11/12/18 08:00 98.2 61 18 99/58 (72) 97 11/12/18 04:00 97.2 75 18 100/59 (73) 98 11/12/18 00:00 98.8 55 17 97/58 (71) 98 11/11/18 21:08 97.7 11/11/18 21:00 Room Air 11/11/18 20:01 100.0 71 16 101/60 (74) 99 Intake and Output 11/11/18 11/12/18 19:00 07:00 Intake Total 2485 ml 1040 ml Balance 2485 ml 1040 ml Intake Oral 1680 ml 640 ml IV Total 805 ml 400 ml # Voids 3 6 Laboratory Tests 11/11/18 17:50: Reticulocyte Count 1.8, Fibrinogen 464H, Lactate Dehydrogenase 116, Carcinoembryonic Antigen 0.8, Hepatitis A IgM Antibody Negative, Hepatitis B Surface Antigen Negative, Hepatitis B Core IgM Antibody Negative, Hepatitis C Antibody <0.1, HIV (1&2) Antibody Rapid Negative 11/12/18 06:10: White Blood Count 7.8, Red Blood Count 3.05L, Hemoglobin 9.9L, Hematocrit 28.7L , Mean Corpuscular Volume 94, Mean Corpuscular Hemoglobin 32.4H, Mean Corpuscular Hemoglobin Concent 34.5, Red Cell Distribution Width 11.1L, Platelet Count 101L, Mean Platelet Volume 7.4, Neutrophils (%) (Auto) 74.3, Lymphocytes (%) (Auto) 13.1L, Monocytes (%) (Auto) 11.3H, Eosinophils (%) (Auto ) 0.8, Basophils (%) (Auto) 0.4, Sodium Level 142, Potassium Level 4.0, Chloride Level 108H, Carbon Dioxide Level 26, Anion Gap 8, Blood Urea Nitrogen 7 , Creatinine 0.7, Estimat Glomerular Filtration Rate > 60, Glucose Level 93, Hemoglobin A1c 5.0, Uric Acid 3.5, Calcium Level 8.1L, Phosphorus Level 3.0, Magnesium Level 1.9, Iron Level 28L, Total Iron Binding Capacity 184L, Percent Iron Saturation 15, Unsaturated Iron Binding 156, Ferritin 117, Total Bilirubin 0.6, Gamma Glutamyl Transpeptidase 17, Aspartate Amino Transf (AST/SGOT) 17, Alanine Aminotransferase (ALT/SGPT) 19, Alkaline Phosphatase 61, C-Reactive Protein, Quantitative 14.2H, Total Protein 6.0L, Albumin 2.7L, Globulin 3.3, Albumin/Globulin Ratio 0.8L, Triglycerides Level 101, Cholesterol Level 91, LDL Cholesterol 45, HDL Cholesterol 28L, Cholesterol/HDL Ratio 3.3, Vitamin B12 Level 409, Folate 18.0, Thyroid Stimulating Hormone (TSH) 1.540 Height (Feet): 5 Height (Inches): 6.00 Weight (Pounds): 117 Objective General Appearance: NAD HEENT: normocephalic, atraumatic Neck: non-tender, normal alignment Respiratory/Chest: nromal breath sounds bilaterally Cardiovascular/Chest: normal peripheral pulses, normal rate Abdomen: normal bowel sounds, soft, nontender Extremities: normal range of motion Don Ocampo MD Nov 12, 2018 17:35
[2018-11-12] MEDS ORDERED: Iron Sucrose 200 MG in NS 110 ML IV SCH (18:00)
[2018-11-12 20:00] VITALS: BP 102/41
--- NOTE | 2018-11-12 20:03 | NUR ---
HAND-OFF: Report given to JAYLIN Carter patient alert awake with out no distress IV Iron given for the first time pt. teaching provided s/s to report if allergy reaction occurred. patient doesn't have any allergic reaction medication completed.
--- NOTE | 2018-11-12 21:00 | NUR ---
NURSE NOTES: Pt is in room ambulating. No acute distress noted. Vitas stable. Family by bedside. Pt reports no pain at this moment. Pt took a shower, IV sites was covered. Bed locked low in position,side rails up and call light within reach.
--- NOTE | 2018-11-12 22:05 | General Progress Note ---
Assessment/Plan Problem List: (1) Pyelonephritis ICD Codes: N12 - Tubulo-interstitial nephritis, not specified as acute or chronic SNOMED: 01854648 (2) Anemia ICD Codes: D64.9 - Anemia, unspecified SNOMED: 893543017 (3) Hypoalbuminemia ICD Codes: E88.09 - Other disorders of plasma-protein metabolism, not elsewhere classified SNOMED: 649330457 Status: progressing Assessment/Plan uti improving flank pain is improving abx per id afebrile Subjective ROS Limited/Unobtainable: Yes Allergies: Coded Allergies: No Known Allergies (Unverified , 11/10/18) Objective Last 24 Hour Vital Signs Date Time Temp Pulse Resp B/P (MAP) Pulse Ox O2 Delivery O2 Flow Rate FiO2 11/12/18 20:00 99.1 58 18 102/41 (61) 98 11/12/18 16:00 98.1 62 18 101/62 (75) 98 11/12/18 12:04 98.4 56 18 97/56 (70) 100 11/12/18 09:00 Room Air 11/12/18 08:00 98.2 61 18 99/58 (72) 97 11/12/18 04:00 97.2 75 18 100/59 (73) 98 11/12/18 00:00 98.8 55 17 97/58 (71) 98 Intake and Output 11/11/18 11/12/18 19:00 07:00 Intake Total 2485 ml 1040 ml Balance 2485 ml 1040 ml Intake Oral 1680 ml 640 ml IV Total 805 ml 400 ml # Voids 3 6 Laboratory Tests 11/12/18 06:10: White Blood Count 7.8, Red Blood Count 3.05L, Hemoglobin 9.9L, Hematocrit 28.7L , Mean Corpuscular Volume 94, Mean Corpuscular Hemoglobin 32.4H, Mean Corpuscular Hemoglobin Concent 34.5, Red Cell Distribution Width 11.1L, Platelet Count 101L, Mean Platelet Volume 7.4, Neutrophils (%) (Auto) 74.3, Lymphocytes (%) (Auto) 13.1L, Monocytes (%) (Auto) 11.3H, Eosinophils (%) (Auto ) 0.8, Basophils (%) (Auto) 0.4, Sodium Level 142, Potassium Level 4.0, Chloride Level 108H, Carbon Dioxide Level 26, Anion Gap 8, Blood Urea Nitrogen 7 , Creatinine 0.7, Estimat Glomerular Filtration Rate > 60, Glucose Level 93, Hemoglobin A1c 5.0, Uric Acid 3.5, Calcium Level 8.1L, Phosphorus Level 3.0, Magnesium Level 1.9, Iron Level 28L, Total Iron Binding Capacity 184L, Percent Iron Saturation 15, Unsaturated Iron Binding 156, Ferritin 117, Total Bilirubin 0.6, Gamma Glutamyl Transpeptidase 17, Aspartate Amino Transf (AST/SGOT) 17, Alanine Aminotransferase (ALT/SGPT) 19, Alkaline Phosphatase 61, C-Reactive Protein, Quantitative 14.2H, Total Protein 6.0L, Albumin 2.7L, Globulin 3.3, Albumin/Globulin Ratio 0.8L, Triglycerides Level 101, Cholesterol Level 91, LDL Cholesterol 45, HDL Cholesterol 28L, Cholesterol/HDL Ratio 3.3, Vitamin B12 Level 409, Folate 18.0, Thyroid Stimulating Hormone (TSH) 1.540 Height (Feet): 5 Height (Inches): 6.00 Weight (Pounds): 117 Neck: supple Cardiovascular: normal rate - l Respiratory/Chest: lungs clear Abdomen: non tender, soft Ismael Gore MD Nov 12, 2018 22:05
[2018-11-13] VITALS: BP 103/57
[2018-11-13 04:00] VITALS: BP 92/52
--- NOTE | 2018-11-13 07:30 | NUR ---
HAND-OFF: Report given to Valentine Peterson RN.Pt is in room, walking. Family by bedside. No pain reported.
[2018-11-13 08:00] VITALS: BP 95/53
[2018-11-13] MEDS: D5 1/2NS w/KCl 40meq 1000ml 1,000 ML IV SCH (08:00)
--- NOTE | 2018-11-13 11:08 | Infectious Diseases Prog Note ---
Assessment/Plan Assessment/Plan A: UTI, likely cystitis and pyelonephritis. Culture growing E. coi gram-negative rods. anemia thrombocytopenia P: Continue Rocephin in hospital At time of discharge PO Cipro X 5 days Subjective ROS Limited/Unobtainable: No Constitutional: Reports: no symptoms Respiratory: Reports: no symptoms Cardiovascular: Reports: no symptoms Gastrointestinal/Abdominal: Reports: no symptoms Genitourinary: Reports: no symptoms Neurologic: Reports: no symptoms Allergies: Coded Allergies: No Known Allergies (Unverified , 11/10/18) Objective Vital Signs Last 24 Hour Vital Signs Date Time Temp Pulse Resp B/P (MAP) Pulse Ox O2 Delivery O2 Flow Rate FiO2 11/13/18 04:00 98.0 61 18 92/52 (65) 97 11/13/18 00:00 99.0 60 17 103/57 (72) 97 11/12/18 21:00 Room Air 11/12/18 20:00 99.1 58 18 102/41 (61) 98 11/12/18 16:00 98.1 62 18 101/62 (75) 98 11/12/18 12:04 98.4 56 18 97/56 (70) 100 Height (Feet): 5 Height (Inches): 6.00 Weight (Pounds): 117 General Appearance: no acute distress HEENT: mucous membranes moist Respiratory/Chest: lungs clear Cardiovascular: normal rate Abdomen: soft, non tender Extremities: no edema Neurologic/Psychiatric: alert, oriented x 3, responsive Microbiology Date/Time Source Procedure Growth Status 11/10/18 14:20 Urine,Clean Catch Urine Culture - Final Escherichia Coli Complete Current Medications Medications (Trade) Dose Ordered Sig/Liz Route PRN Reason Start Time Stop Time Status Last Admin Dose Admin Acetaminophen (Tylenol) 500 mg Q4H PRN ORAL Mild Pain/Temp > 100.5 11/10/18 21:00 12/10/18 20:59 11/11/18 20:38 Ceftriaxone Sodium 1 gm/ Dextrose 55 ml @ 110 mls/hr Q24H IVPB 11/11/18 15:00 11/18/18 14:59 11/12/18 15:50 Dextrose/ Electrolytes 1,000 ml @ 50 mls/hr Q20H IV 11/11/18 16:00 12/11/18 15:59 11/12/18 16:49 Pantoprazole (Protonix) 40 mg EVERY 12 HOURS ORAL 11/11/18 21:00 12/11/18 20:59 11/13/18 09:00 Rocael Umanzor MD Nov 13, 2018 11:08
[2018-11-13 12:00] VITALS: BP 104/57
--- NOTE | 2018-11-13 15:00 | NUR ---
NURSE NOTES: Dr. Srivastava phoned per pt request. Pt staes she feels better and would like to go home. Pt was informed of Dr orders. Dr gave okay with discharge to d/c al hospital medications . Continue home medications. Dr. Koby Garcia left order for antibiotics. Diet to be upgraded as tolerated. is at bedside
--- NOTE | 2018-11-13 15:07 | General Progress Note ---
Assessment/Plan Assessment/Plan Assessment and recs: # Anemia of chronic disease due to underlying chronic medical issues, multifactorial --> Anemia workup has been ordered/reviewed, ferritin is wnl --> No evidence of hemolysis is noted, peripheral smear has been reviewed. --> Hgb goal >7. Transfuse prn. --> Epogen or iron at this time is not particularly indicated --> Medications have been reviewed --> evaluate with Gi team prn --> transfuse if hgb is < 7 (will trend CBC daily) --> low threshold for gi evaluation in case has occult + # Thrombocytopenia - potential causes multifactorial, evaluate liver and viral etiologies to begin, also could be related to underlying medications patient has received. --> Hep panel and HIV is negative --> US abd to evaluate for cirrhosis and hsm ordered and does not show hsm/ cirrhosis --> Peripheral smear ordered to evaluate for blasts /schistocytes is neg --> abx and other meds have been reviewed --> ok for ppx if plt >50k w/ either heparin or lovenox --> Transfuse if Plt < 20k and fever, or if Plt < 10k without fever # Pyelonephritis --> on abx, have been started --> okay per id to go home on po meds # Hypokelamia --> repletion per renal recs, appreciated # HypoAlbuminemia --> eval as needed per renal The timing of this note does not necessarily reflect the time of the patient was seen. Greatly appreciate consultation! Subjective Constitutional: Denies: no symptoms, chills, diaphoresis, fever, malaise, weakness, other HEENT: Denies: no symptoms, eye pain, blurred vision, tearing, double vision, ear pain, ear discharge, nose pain, nose congestion, throat pain, throat swelling, mouth pain, mouth swelling, other Cardiovascular: Denies: no symptoms, chest pain, edema, irregular heart rate, lightheadedness, palpitations, syncope, other Gastrointestinal/Abdominal: Denies: no symptoms, abdomen distended, abdominal pain, black stools, tarry stools, blood in stool, constipated, diarrhea, difficulty swallowing, nausea, poor appetite, poor fluid intake, rectal bleeding , vomiting, other Genitourinary: Denies: no symptoms, burning, discharge, frequency, flank pain, hematuria, incontinence, pain, urgency, other Endocrine: Denies: no symptoms, excessive sweating, flushing, intolerance to cold, intolerance to heat, increased hunger, increased thirst, increased urine, unexplained weight gain, unexplained weight loss, other Allergies: Coded Allergies: No Known Allergies (Unverified , 11/10/18) Subjective 11/12: no events to report, no f/c, hgb 9.9 11/13: no events noted, no fevers or chills, overall improved, less abd pain Objective Last 24 Hour Vital Signs Date Time Temp Pulse Resp B/P (MAP) Pulse Ox O2 Delivery O2 Flow Rate FiO2 11/13/18 04:00 98.0 61 18 92/52 (65) 97 11/13/18 00:00 99.0 60 17 103/57 (72) 97 11/12/18 21:00 Room Air 11/12/18 20:00 99.1 58 18 102/41 (61) 98 11/12/18 16:00 98.1 62 18 101/62 (75) 98 Intake and Output 11/12/18 11/13/18 19:00 07:00 Intake Total 500 ml 1150 ml Balance 500 ml 1150 ml Intake Oral 450 ml 700 ml IV Total 50 ml 450 ml # Voids 4 2 Height (Feet): 5 Height (Inches): 6.00 Weight (Pounds): 117 Objective General Appearance: NAD HEENT: normocephalic, atraumatic Neck: non-tender, normal alignment Respiratory/Chest: nromal breath sounds bilaterally Cardiovascular/Chest: normal peripheral pulses, normal rate Abdomen: normal bowel sounds, soft, nontender Extremities: normal range of motion Don Ocampo MD Nov 13, 2018 15:07
[2018-11-13] MEDS: cefTRIAXone 1 GM in D5W 55 ML IVPB SCH (15:35)
--- NOTE | 2018-11-13 15:42 | NUR ---
*-* INSURANCE *-* ALL CLINICAS AND REVIEW HAVE BEEN FAXED TO; F/S FAXED TO [facility]....PROF S/W RIDDHI @ [phone] X 120 REQUESTING REVIEW/CLINICAL NCM: SHUKRI GIPSON FX: [phone].....REVIEW/ CLINICAL
[2018-11-13 16:00] VITALS: BP 102/70
--- NOTE | 2018-11-13 16:41 | Nephrology Progress Note ---
Assessment/Plan Problem List: (1) Pyelonephritis (2) Anemia (3) Hypoalbuminemia Assessment Pyelonephritis Anemia HypoAlbuminemia Plan Hydrate Antibiotics Anemia work up- IV Venofer once CT: Impression: Mild bladder wall thickening, could indicate cystitis. No acute process otherwise. No evidence of urinary stone disease or obstructive uropathy Evidence of prior bilateral endoluminal fallopian tubal ligation Subjective ROS Limited/Unobtainable: No Constitutional: Reports: malaise Objective Objective Last 24 Hour Vital Signs Date Time Temp Pulse Resp B/P (MAP) Pulse Ox O2 Delivery O2 Flow Rate FiO2 11/13/18 04:00 98.0 61 18 92/52 (65) 97 11/13/18 00:00 99.0 60 17 103/57 (72) 97 11/12/18 21:00 Room Air 11/12/18 20:00 99.1 58 18 102/41 (61) 98 Intake and Output 11/12/18 11/13/18 19:00 07:00 Intake Total 500 ml 1150 ml Balance 500 ml 1150 ml Intake Oral 450 ml 700 ml IV Total 50 ml 450 ml # Voids 4 2 Current Medications Medications (Trade) Dose Ordered Sig/Liz Route PRN Reason Start Time Stop Time Status Last Admin Dose Admin Acetaminophen (Tylenol) 500 mg Q4H PRN ORAL Mild Pain/Temp > 100.5 11/10/18 21:00 12/10/18 20:59 11/11/18 20:38 Ceftriaxone Sodium 1 gm/ Dextrose 55 ml @ 110 mls/hr Q24H IVPB 11/11/18 15:00 11/18/18 14:59 11/13/18 15:35 Dextrose/ Electrolytes 1,000 ml @ 50 mls/hr Q20H IV 11/11/18 16:00 12/11/18 15:59 11/12/18 16:49 Pantoprazole (Protonix) 40 mg EVERY 12 HOURS ORAL 11/11/18 21:00 12/11/18 20:59 11/13/18 09:00 Height (Feet): 5 Height (Inches): 6.00 Weight (Pounds): 117 General Appearance: no apparent distress Objective no change Jose Potts MD Nov 13, 2018 16:41
[2018-11-13] MEDS ORDERED: CIPRO500 MG PO (17:48)
--- NOTE | 2018-11-13 18:03 | NUR ---
NURSE NOTES: Prescription faxed to pharmacy. Awaiting delivery. Discharge packet given. Provided eduction on importance of slowly upgrading diet. Attempt to avoid high fat foods, and or large heavy meals , IV line removed. Pt is in stable condition no pain
--- NOTE | 2018-11-16 13:37 | Discharge Summary ---
Discharge Summary Discharge Summary _ DATE OF ADMISSION: 11/10/2018 DATE OF DISCHARGE: 11/13/18 DISCHARGED BY: Dr Gore REASON FOR ADMISSION: 33 years old female with no significant past medical history , presented to emergency department complaining of right flank pain. Symptoms started around 2 weeks ago. Patient had urinary tract infection and undergone treatment with antibiotic . She subsequently felt better. However she continued to have right flank and abdominal pain and presented for evaluation. She also reported chills earlier that day. She denied chest pain or shortness of breath . Upon evaluation vital signs were stable. Laboratory workup revealed leukocytosis WBC 13, hemoglobin 11.9, hematocrit 34.4 , platelets 133. Urinalysis revealed evidence of UTI. +1 protein. Urine test was negative. Potassium 3.5. Stable electrolytes and renal parameters. Stable LFT. CT of the abdomen and pelvis revealed mild bladder wall thickening, possibly indicative of cystitis. No acute process otherwise. No evidence of urinary stone disease or obstructive uropathy. Evidence of prior bilateral endoluminal fallopian tubal ligation. In emergency department patient pancultured, started on empiric antibiotic and IV fluids. Pain management was addressed. Patient admitted to medical surgical floor for further management. CONSULTANTS: ID specialist Dr. Moe director of loss prevention Dr. Potts design cell engineer/oncologist Dr. Ocampo HOSPITAL COURSE: Patient admitted and started on IV fluids and empiric antibiotic. ID specialist closely followed. Urine culture revealed E. coli. Fevers and leukocytosis resolved. While in the hospital patient was receiving IV Rocephin. Infectious disease specialist recommended to change to oral Cipro for additional 5 days upon discharge. Director Of Clinical Trials followed. Renal parameters and electrolytes were closely monitored. Electrolytes corrected as needed. Nephrotoxins were avoided. Anemia workup revealed evidence of anemia of chronic disease. Ferritin within normal limits. Hemoglobin and hematocrit were closely monitored with goal to keep hemoglobin above 7. Epogen at this time was not particularly indicated . IV iron x1 was given. Hepatitis panel negative. HIV test nonreactive. Ultrasound of the abdomen revealed no evidence of hepatosplenomegaly or cirrhosis. Abdominal ultrasound revealed mild right hydronephrosis versus parapelvic cyst ; favor the former without definite obstructing calculus or evidence of ureteral dilatation . Could represent mild congenital ureteropelvic junction obstruction. Negative for gallstones or dilated bile ducts. LFT and bilirubin remained stable. Lipid panel stable. Noted elevated CRP of the 14. CEA within normal limits. GI prophylaxis provided. Supportive care provided. Pain management addressed. Patient clinically stabilized and was ready for discharge FINAL DIAGNOSES: Pyelonephritis /UTI due to E. coli Anemia of chronic disease Thrombocytopenia Hypoalbuminemia Hypokalemia DISCHARGE MEDICATIONS: See Medication Reconciliation list. DISCHARGE INSTRUCTIONS: Patient was discharged home . Follow up with primary care provider in one week. I have been assigned to dictate discharge summary for this account. I was not involved in the patient's management. Kassidy Wade NP Nov 16, 2018 13:37
== END 2018-11-13 18:30 | disposition home or self-care (01) | DRG 463 ==
LOC: EDBD 13:57 → EMR 14:30 → 3E 18:15 → EDBEDREQ 18:37
DX: N12 Tubulo-interstitial nephritis, not specified as acute or chronic (principal); D69.6 Thrombocytopenia, unspecified; N39.0 Urinary tract infection, site not specified; B96.20 Unspecified Escherichia coli [E. coli] as the cause of diseases classified elsewhere; D63.8 Anemia in other chronic diseases classified elsewhere; E88.09 Other disorders of plasma-protein metabolism, not elsewhere classified; E87.6 Hypokalemia; F17.200 Nicotine dependence, unspecified, uncomplicated; Z68.1 Body mass index [BMI] 19.9 or less, adult
CPT/HCPCS: 36415; 74176; 76700; 80053; 80061; 81003; 81025; 82378; 82607; 82728; 82746; 82977; 83036; 83540; 83550; 83615; 83690; 83735; 84100; 84443; 84550; 85007; 85025; 85044; 85060; 85384; 86140; 86703; 86705; 86709; 86803; 87086; 87181; 87340; 96361; 96365; 96375; 99285

== ENCOUNTER 2018-12-02 20:00 | Emergency (ER) | payer MEDICAID ==
[~2018-12-02] VITALS: Ht 157.5 cm; Wt 44.5 kg
[~2018-12-02 20:00] MED LIST: CIPRO500 MG PO
[2018-12-02 20:08] VITALS: BP 115/76
--- NOTE | 2018-12-02 20:08 | NUR ---
ED Nurse Note: Pt arroived ED from home, c/o urinary urgency and burning for 2 days. Pt has started treatment for one day but still feeling pain. Pt is A/O X 4. Vital signs stable at this time, waiting for orders.
[2018-12-02] MEDS ORDERED: PHENAZOPYRIDIN100 MG ORAL (20:26)
[2018-12-02] MEDS ORDERED: TYLENOL EXTRA500 MG ORAL (20:26)
[2018-12-02 20:38] VITALS: BP 115/76
--- NOTE | 2018-12-02 20:38 | NUR ---
ER DISCHARGE NOTE: Patient is cleared to be discharged per Dr. Wilde. Pt is aox4 on room air with stable vital signs. Pt was given D/C and prescription instructions and was able to verbalize understanding. Pt's ID band removed. Pt is able to ambulate with steady gait and took all belongings.
--- NOTE | 2018-12-02 21:07 | Emergency Room Report ---
History of Present Illness General Chief Complaint: Female Urogenital Problems Source: Patient Present Illness HPI 33-year-old female presents ED for evaluation. Complaining of back pain and dysuria for the last 3 days. Pain is dull, 6 out of 10, nonradiating. Was seen by a clinic yesterday and was prescribed antibiotics for UTI. States that she took 2 pills and states her symptoms did not resolve. Denies fevers or chills. Denies nausea or vomiting. No other aggravating relieving factors. Denies any other associated symptoms Allergies: Coded Allergies: No Known Allergies (Unverified , 11/10/18) Patient History Past Medical History: none Past Surgical History: none Pertinent Family History: none Social History: Denies: smoking, alcohol use, drug use Last Menstrual Period: 11/08/18 Now: No : 2 Para: 2 Immunizations: UTD Reviewed Nursing Documentation: PMH: Agreed; PSxH: Agreed Nursing Documentation-PMH Past Medical History: No Stated History Review of Systems All Other Systems: negative except mentioned in HPI Physical Exam Vital Signs Date Time Temp Pulse Resp B/P (MAP) Pulse Ox O2 Delivery O2 Flow Rate FiO2 12/02/18 20:02 98.1 72 18 99 Sp02 EP Interpretation: reviewed, normal General Appearance: no apparent distress, alert, GCS 15, non-toxic Head: normocephalic, atraumatic Eyes: bilateral eye normal inspection, bilateral eye PERRL ENT: hearing grossly normal, normal pharynx, no angioedema, normal voice Neck: full range of motion, supple/symm/no masses Respiratory: chest non-tender, lungs clear, normal breath sounds, speaking full sentences Cardiovascular #1: regular rate, rhythm, no edema Cardiovascular #2: 2+ carotid (R), 2+ carotid (L), 2+ radial (R), 2+ radial (L) , 2+ dorsalis pedis (R), 2+ dorsalis pedis (L) Gastrointestinal: normal bowel sounds, soft, non-distended, no guarding, no rebound, tenderness - suprapubic Rectal: deferred Genitourinary: normal inspection, CVA tenderness (R) Musculoskeletal: back normal, gait/station normal, normal range of motion, non- tender Neurologic: alert, oriented x3, responsive, motor strength/tone normal, sensory intact, speech normal Psychiatric: judgement/insight normal, memory normal, mood/affect normal, no suicidal/homicidal ideation Reflexes: 3+ bicep (R), 3+ bicep (L), 3+ tricep (R), 3+ tricep (L), 3+ knee (R) , 3+ knee (L) Skin: normal color, no rash, warm/dry, well hydrated Lymphatic: no adenopathy Medical Decision Making Diagnostic Impression: Primary Impression: Pyelonephritis ER Course Hospital Course 33-year-old female presents to ED complaining of dysuria with suprapubic pain. Differential diagnoses include: UTI, cystitis, pyelonephritis Clinical course Patient placed on stretcher. After initial history, physical exam reveals young female in no acute distress. There is some minimal flank pain on the right. Some suprapubic tenderness. Abdomen soft. Vital stable. Afebrile. Nontoxic appearing. Patient already started on antibiotics. I encouraged patient to continue Cipro as prescribed. Also prescribe Pyridium and Tylenol for symptomatic comfort. Given Tylenol here in ED. Safe for discharge close outpatient follow-up. We'll provide referrals Diagnosis - pyelonephritis Stable and discharged home with prescriptions for Rx pyridium, tylenol. continue cipro as prescribed. Instructed to followup with PMD. Return to ED if symptoms recur or worsen Last Vital Signs Date Time Temp Pulse Resp B/P (MAP) Pulse Ox O2 Delivery O2 Flow Rate FiO2 12/02/18 20:02 98.1 72 18 99 Status: improved Disposition: HOME, SELF-CARE Condition: Stable Scripts Acetaminophen* (TYLENOL EXTRA STRENGTH*) 500 Mg Tablet 500 MG ORAL Q8H PRN for Prn Headache/Temp > 101, #30 TAB 0 Refills Prov: Yanick Wilde MD 12/02/18 Phenazopyridine Hcl* (PYRIDIUM*) 100 Mg Tablet 100 MG ORAL THREE TIMES A DAY for 3 Days, TAB Prov: Yanick Wilde MD 12/02/18 Referrals: NOT CHOSEN IPA/,REFERRING (PCP) [facility] Patient Instructions: Pyelonephritis, Adult, [id number] Yanick Wilde MD December 02, 2018 21:07
== END 2018-12-02 20:38 | disposition home or self-care (01) ==
LOC: EMR 20:24
DX: N12 Tubulo-interstitial nephritis, not specified as acute or chronic (principal)
CPT/HCPCS: 99282